=== PATIENT | female | born 1990 | race African-American/Black ===

== ENCOUNTER 2017-05-11 22:05 | Emergency (ER) | payer SELFPAY ==
[~2017-05-11] VITALS: Ht 154.9 cm; Wt 78.7 kg
[2017-05-11 23:08] LABS: HEMATOCRIT 37.6 % (36.0-46.0); HEMOGLOBIN 12.9 G/DL (11.9-15.5); MCH 28.3 PG (29.0-34.0); MCHC 34.3 G/DL (30.0-36.0); MCV 82.5 FL (83-99); PLATELET COUNT 255 K/uL (156-360); RBC DIS.WIDTH-CV 12.6 % (11.8-14.6); RBC DIS.WIDTH-SD 38.1 % (39-53); RED BLOOD COUNT 4.56 M/uL (3.80-5.20)
[2017-05-11 23:16] LABS: ALBUMIN 3.8 g/dL (3.2-4.8); CHLORIDE 104 mEq/L (99-109); POTASSIUM 3.3 mEq/L (3.7-5.4); SODIUM 137 mEq/L (136-147)
[2017-05-11 23:18] LABS: GLUCOSE 90 mg/dL (70-99); TOTAL PROTEIN 7.1 g/dL (6.4-8.3)
[2017-05-11 23:20] LABS: TOTAL BILIRUBIN 0.9 mg/dL (0.0-1.0)
[2017-05-11 23:22] LABS: ALKALINE PHOSPHATASE 50 IU/L (3-129); CREATININE 0.7 mg/dL (0.6-1.3)
[2017-05-11 23:23] LABS: UREA NITROGEN (BUN) 6 mg/dL (9-23)
[2017-05-11 23:24] LABS: AST (GOT) 14 IU/L (2-34); GFR ESTIMATE (CALCULATED) > 59 mL/min/
[2017-05-11 23:25] LABS: ALT (GPT) 16 IU/L (3-49)
[2017-05-11 23:36] LABS: APPEARANCE SL.HAZY ((CLEAR)); BILIRUBIN NEGATIVE; BLOOD NEGATIVE; COLOR YELLOW ((YELLOW)); GLUCOSE (STRIP) NEGATIVE; KETONES 80; LEUKOCYTES NEGATIVE; NITRITE NEGATIVE; PROTEIN (STRIP) 30; SPECIFIC GRAVITY 1.032 (1.000-1.030)
[2017-05-11 23:52] LABS: QUANTITATIVE HCG 81408.2 MIU/ML
[2017-05-12] LABS: BACTERIA 1+ /HPF; EPITHELIAL CELLS 1+ /HPF; MUCUS 4+ /LPF; RED BLOOD CELLS NONE SEEN /HPF (0-5); UCUL ADDED? NO; WHITE BLOOD CELLS RARE /HPF (0-5)
[2017-05-12] MEDS ORDERED: ZOFRAN ODT4 MG PO (01:34)
[2017-05-12 02:10] VITALS: BP 114/77
== END 2017-05-12 02:21 | disposition home or self-care (01) ==
LOC: EME 22:05
DX: O21.9 Vomiting of pregnancy, unspecified (principal); O99.619 Diseases of the digestive system complicating pregnancy, unspecified trimester; K52.9 Noninfective gastroenteritis and colitis, unspecified; Z3A.00 Weeks of gestation of pregnancy not specified
CPT/HCPCS: 80053; 81003; 84702; 85027; 99281; 99284